=== PATIENT | female | born 1995 | race Caucasian/White ===

== ENCOUNTER 2017-03-05 09:10 | Emergency (ER) | payer OTHER ==
[2017-03-05] MEDS ORDERED: Ondansetron INJ* 2 MG/ML VIAL IV ONE (09:25)
[2017-03-05] MEDS ORDERED: NS 0.9% 1000 ML* 1,000 ML IV ONE (09:25)
[2017-03-05 10:47] LABS: Hematocrit 41 % (35-47); Hemoglobin 13.9 g/dl (12.0-16.0); Mean Corpuscular HGB Conc 34 g/dl (31-36); Mean Corpuscular Hemoglobin 28 pg (27-31); Mean Corpuscular Volume 82 fL (80-97); Mean Platelet Volume 8 um3 (7.4-10.4); Red Blood Count 5.06 10^6/ul (4.0-5.4); Red Cell Distribution Width 14 % (10.5-15); White Blood Count 8.8 10^3/ul (3.5-10.8)
[2017-03-05 10:48] LABS: ALT 8 U/L (7-52); AST 13 U/L (13-39); Albumin 4.8 g/dL (3.2-5.2); Alkaline Phosphatase 40 U/L (34-104); Anion Gap 7 mmol/L (2-11); BUN/Creatinine Ratio 14.5 (8-20); Blood Urea Nitrogen 8 mg/dL (6-24); C Reactive Protein < 1.00 mg/L (< 5.00); CO2 Carbon Dioxide 29 mmol/L (22-32); Calcium 9.9 mg/dL (8.6-10.3); Chloride 101 mmol/L (101-111); EGFR African American 183.1 (>60); EGFR Non-African American 142.4 (>60); Globulin 2.8 g/dL (2-4); Glucose 81 mg/dL (70-100); Lipase 18 U/L (11.0-82.0); Potassium 3.5 mmol/L (3.5-5.0); Sodium 137 mmol/L (133-145); Total Protein 7.6 g/dL (6.4-8.9)
[2017-03-05 11:32] LABS: Urine Bacteria 1+ (Absent); Urine Bilirubin Negative (Negative); Urine Glucose Negative (Negative); Urine Nitrite Negative (Negative)
[2017-03-05] MEDS ORDERED: Al Hydrox/Mg Hydrox/Simet LIQ* 30 ML UDC PO ONE (12:10)
[2017-03-05] MEDS ORDERED: Lidocaine 2% VISCOUS* 15 ML UDC PO ONE (12:10)
[2017-03-05] MEDS ORDERED: Ondansetron ODT TAB* 4 MG PO ONE (12:13)
[2017-03-05 15:02] VITALS: BP 114/60
--- NOTE | 2017-03-11 21:49 | ED ---
Lisha Dickey Alfonso scribed for Abdulaziz Arriola MD on 03/05/17 at 1242 . Abdominal Pain/Female - HPI Summary HPI Summary: This patient is a 21 year old F presenting to [facility] with a chief complaint of intermittent abdominal pain since one week ago. She reports a knee surgery 7 weeks ago and having developed cellulitis. She was started on Bactrim when she developed abdominal pain and diarrhea. The patient rates the pain 3/10 in severity. Symptoms aggravated by eating. Symptoms alleviated by spontaneous resolution. Patient reports chills, diarrhea (green stool), nausea, and vomiting (this morning). Patient denies fever, diaphoresis, hematemesis, and melena. PMHx includes congenital adrenal hyperplasia and colduticaria. - History of Current Complaint Chief Complaint: EDAbdPain Stated Complaint: VOMITING/DIARRHEA Time Seen by Provider: 03/05/17 10:08 Hx Obtained From: Patient Onset/Duration: Sudden Onset, Lasting Weeks, Still Present Timing: Intermittent Episode Lasting Severity Initially: Mild Severity Currently: Mild Pain Intensity: 3 Pain Scale Used: 0-10 Numeric Aggravating Factor(s): Food Alleviating Factor(s): Spontaneous Resolution Associated Signs and Symptoms: Positive: Other: - Patient reports chills, diarrhea (green stool), nausea, and vomiting (this morning). Patient denies fever, diaphoresis, hematemesis, and melena. Allergies/Adverse Reactions: Allergies Allergy/AdvReac Type Severity Reaction Status Date / Time Amoxicillin Allergy Dizziness Verified 03/05/17 09:14 Clavulanic Acid Allergy Airway Verified 03/05/17 09:33 Obstruction Doxycycline Allergy Tingling Verified 03/05/17 09:33 Vancomycin Allergy Anaphylatic Verified 03/05/17 09:33 Shock cold water Allergy Hives Uncoded 03/05/17 09:14 PMH/Surg Hx/FS Hx/Imm Hx Endocrine/Hematology History: Reports: Other Endocrine/Hematological Disorders - congenital adrenal hyperplasia and colduticaria. Sensory History: Denies: Hx Deafness Opthamlomology History: Denies: Hx Legally Blind Infectious Disease History: No Infectious Disease History: Denies: Traveled Outside the [place] in Last 30 Days - Family History Known Family History: Positive: Hypertension Negative: Diabetes Review of Systems Positive: Chills. Negative: Fever, Skin Diaphoresis Negative: Erythema Negative: Sore Throat Negative: Chest Pain Negative: Shortness Of Breath, Cough Positive: Abdominal Pain, Vomiting, Diarrhea - green stools, Nausea, Other - Negative hematemesis and melena. Negative: dysuria, hematuria Negative: Myalgia, Edema Negative: Rash Neurological: Other - Negative weakness All Other Systems Reviewed And Are Negative: Yes Physical Exam Triage Information Reviewed: Yes Vital Signs On Initial Exam: Initial Vitals Temp Pulse Resp BP Pulse Ox 98 F 94 16 122/83 99 03/05/17 09:14 03/05/17 09:14 03/05/17 09:14 03/05/17 09:14 03/05/17 09:14 Vital Signs Reviewed: Yes Appearance: Positive: Well-Appearing, No Pain Distress, Well-Nourished Skin: Positive: Warm, Dry Head/Face: Positive: Normal Head/Face Inspection Neck: Positive: Other: - Musculoskeletal ROM normal neck. (-) JVD, (-) Stridor, (-) Tracheal deviation, (-) Cervical adenopathy Respiratory/Lung Sounds: Positive: Other - Effort normal. (-) Respiratory distress, (-) Wheezes, (-) Rales Cardiovascular: Positive: Other - Rhythm regular, rate normal, Heart sounds normal; Intact distal pulses; The pedal pulses are 2+ and symmetric. Radial pulses are 2+ and symmetric. (-) Murmur Abdomen Description: Positive: Other: - Mild LLQ and epigastric tenderness, Soft , (-) Distension, (-) Guarding, (-) Rebound Musculoskeletal: Negative: Edema Left, Edema Right Neurological: Positive: Alert, Oriented to Person Place, Time Psychiatric: Positive: Affect/Mood Appropriate Diagnostics - Vital Signs Vital Signs Temp Pulse Resp BP Pulse Ox 03/05/17 11:30 80 121/65 97 03/05/17 11:09 97 98 03/05/17 11:08 124/66 03/05/17 10:20 81 99 03/05/17 10:00 79 119/71 99 03/05/17 09:30 84 116/76 99 03/05/17 09:25 98.5 F 88 16 125/82 99 03/05/17 09:24 89 125/82 99 03/05/17 09:14 98 F 94 16 122/83 99 - Laboratory Lab Results: Lab Results 03/05/17 03/05/1703/05/17 Range/Units 10:17 10:17 10:17 WBC 8.8 (3.5-10.8) 10^3/ul RBC 5.06 (4.0-5.4) 10^6/ul Hgb 13.9 (12.0-16.0) g/dl Hct 41 (35-47) % MCV 82 (80-97) fL MCH 28 (27-31) pg MCHC 34 (31-36) g/dl RDW 14 (10.5-15) % Plt Count 405 (150-450) 10^3/ul MPV 8 (7.4-10.4) um3 Neut % (Auto) 53.8 (38-83) % Lymph % (Auto) 35.5 (25-47) % [place] % (Auto) 8.2 (1-9) % Eos % (Auto) 1.8 (0-6) % Baso % (Auto) 0.7 (0-2) % Absolute Neuts (auto) 4.7 (1.5-7.7) 10^3/ul Absolute Lymphs (auto) 3.1 (1.0-4.8) 10^3/ul Absolute Monos (auto) 0.7 (0-0.8) 10^3/ul Absolute Eos (auto) 0.2 (0-0.6) 10^3/ul Absolute Basos (auto) 0.1 (0-0.2) 10^3/ul Absolute Nucleated RBC 0 10^3/ul Nucleated RBC % 0.1 Sodium 137 (133-145) mmol/L Potassium 3.5 (3.5-5.0) mmol/L Chloride 101 (101-111) mmol/L Carbon Dioxide 29 (22-32) mmol/L Anion Gap 7 (2-11) mmol/L BUN 8 (6-24) mg/dL Creatinine 0.55 (0.51-0.95) mg/dL Est GFR ( Amer) 183.1 (>60) Est GFR (Non-Af Amer) 142.4 (>60) BUN/Creatinine Ratio 14.5 (8-20) Glucose 81 (70-100) mg/dL Calcium 9.9 (8.6-10.3) mg/dL Total Bilirubin 0.40 (0.2-1.0) mg/dL AST 13 (13-39) U/L ALT 8 (7-52) U/L Alkaline Phosphatase 40 (34-104) U/L C-Reactive Protein < 1.00 (< 5.00) mg/L Total Protein 7.6 (6.4-8.9) g/dL Albumin 4.8 (3.2-5.2) g/dL Globulin 2.8 (2-4) g/dL Albumin/Globulin Ratio 1.7 (1-3) Lipase 18 (11.0-82.0) U/L Beta HCG, Quant < 0.60 mIU/mL Urine Color Yellow Urine Appearance Clear Urine pH 6.0 (5-9) Ur Specific [place] 1.021 (1.010-1.030) Urine Protein Negative (Negative) Urine Ketones 1+ H (Negative) Urine Blood Negative (Negative) Urine Nitrate Negative (Negative) Urine Bilirubin Negative (Negative) Urine Urobilinogen Negative (Negative) Ur Leukocyte Esterase 1+ H (Negative) Urine WBC (Auto) Trace(0-5/hpf) (Absent) Urine RBC (Auto) Absent (Absent) Ur Squamous Epith Cells Present H (Absent) Urine Bacteria 1+ H (Absent) Urine Glucose Negative (Negative) Result Diagrams: 03/05/17 10:17 03/05/17 10:17 Lab Statement: Any lab studies that have been ordered have been reviewed, and results considered in the medical decision making process. Re-Evaluation - Re-Evaluation First Eval Re-Evaluation Time: 13:35 Comment: Spoke with mother regarding the patient's condition. Patient reports the medications have alleviated her symptoms. Second Eval Re-Evaluation Time: 14:41 Change: Improved Comment: She tolarated PO. Abdominal Pain Fem Course/Dx - Course Course Of Treatment: This patient is a 21 year old F presenting to [facility] with a chief complaint of intermittent abdominal pain since one week ago. She reports a knee surgery 7 weeks ago and having developed cellulitis. She was started on Bactrim when she developed abdominal pain and diarrhea. The patient rates the pain 3/10 in severity. Symptoms aggravated by eating. Symptoms alleviated by spontaneous resolution. Patient reports chills, diarrhea (green stool), nausea, and vomiting (this morning). Patient denies fever, diaphoresis, hematemesis, and melena. PMHx includes congenital adrenal hyperplasia and colduticaria. Consulted Dr. Jimenez (gastro) who recommends follow up at their office. Patient will be discharged with prescription for Zofran and Carafate and follow up from PCP and Dr. Jimenez. The patient is agreeable with this plan. - Diagnoses Provider Diagnoses: Epigastric pain, Diarrhea, Vomiting - Provider Notifications Discussed Care Of Patient With: Abiodun Jimenez Time Discussed With Above Provider: 14:46 Instructed by Provider To: Other - Consulted Dr. Jimenez (gastro) who recommends follow up at their office. Discharge - Discharge Plan Condition: Stable Disposition: HOME Prescriptions: Ondansetron ODT TAB* [Zofran 4 MG Odt TAB*] 4 mg PO Q8H PRN #12 tab.odt PRN Reason: Nausea/Vomiting Sucralfate SUSP (NF) [Carafate SUSP (NF)] 10 ml PO Q6HR #250 ml Patient Education Materials: Acute Nausea and Vomiting (ED), Acute Diarrhea (ED ), Epigastric Pain (ED) Referrals: [facility] [place] [facility] [Outside] - 3 Days Abiodun Jimenez MD [Medical Doctor] - 1 Day Additional Instructions: RETURN TO THE EMERGENCY DEPARTMENT FOR CHANGING OR WORSENING SYMPTOMS The documentation as recorded by the Lisha espinosa Alfonso accurately reflects the service I personally performed and the decisions made by , Abdulaziz Arriola MD.
--- NOTE | 2017-03-12 08:59 | ED ---
Progress - Progress Note Progress Note: Pt's stool cx reveals klebsiella oxytoca. She was on bactrim prior to her diarrhea and ab pain sx. LMTC to update her sx since cessation of anbx. No change in tx. Re-Evaluation - Re-Evaluation First Eval Re-Evaluation Time: 13:35 Comment: Spoke with mother regarding the patient's condition. Patient reports the medications have alleviated her symptoms. Second Eval Re-Evaluation Time: 14:41 Change: Improved Comment: She tolarated PO. Course/Dx - Course Course Of Treatment: This patient is a 21 year old F presenting to [facility] with a chief complaint of intermittent abdominal pain since one week ago. She reports a knee surgery 7 weeks ago and having developed cellulitis. She was started on Bactrim when she developed abdominal pain and diarrhea. The patient rates the pain 3/10 in severity. Symptoms aggravated by eating. Symptoms alleviated by spontaneous resolution. Patient reports chills, diarrhea (green stool), nausea, and vomiting (this morning). Patient denies fever, diaphoresis, hematemesis, and melena. PMHx includes congenital adrenal hyperplasia and colduticaria. Consulted Dr. Jimenez (gastro) who recommends follow up at their office. Patient will be discharged with prescription for Zofran and Carafate and follow up from PCP and Dr. Jimenez. The patient is agreeable with this plan. - Diagnoses Provider Diagnoses: Epigastric pain, Diarrhea, Vomiting - Provider Notifications Time Discussed With Above Provider: 14:46 Instructed by Provider To: Other - Consulted Dr. Jimenez (gastro) who recommends follow up at their office.
== END 2017-03-05 15:01 | disposition home or self-care (01) ==
LOC: ED 09:10
DX: R10.13 Epigastric pain (principal); R19.7 Diarrhea, unspecified; R11.10 Vomiting, unspecified; A04.8 Other specified bacterial intestinal infections
CPT/HCPCS: 36415; 80053; 81003; 81015; 83690; 84702; 85025; 86140; 87045; 87046; 87077; 87086; 87177; 87209; 87328; 87329; 87899; 99282; A9270-GY; J2405